=== PATIENT | male | born 2000 | race Caucasian/White ===

== ENCOUNTER 2025-01-06 19:48 | Inpatient (IN) | payer OTHER, SELFPAY ==
--- NOTE | ~2025-01-06 | CT_ITS ---
EXAMINATION: CT abdomen pelvis w con DATE: 01/07/2025 01:52 INDICATION: Fever. Abdominal pain. TECHNIQUE: Computed tomography (CT) of the abdomen and pelvis was performed with 100 mm Omnipaque 350 intravenous contrast. Automated exposure control and iterative reconstruction technique were employed. The dose-length product was 223.53 mGy-cm. COMPARISON: None. FINDINGS: The visualized portions of the lung bases are clear without pneumonia or pleural effusion. The heart size is normal. No pericardial effusion. The liver, gallbladder, spleen, pancreas, adrenal glands, and kidneys are normal. The appendix is fluid-filled and dilated to 13 mm with surrounding fat stranding, consistent with appendicitis. There are no pathologically enlarged lymph nodes. There is no free intraperitoneal fluid. There is mild chronic anterior wedging of multiple lower thoracic vertebral bodies. IMPRESSION: 1. Acute appendicitis. Reviewed, dictated and finalized at location E. IMPRESSION: 1. Acute appendicitis.
[2025-01-06 19:59] VITALS: BP 124/52; PULSE 101; RESP 18; TEMP 38.2; O2SAT 100
[2025-01-07] VITALS (29 sets, daily range): BP systolic 94–143; BP diastolic 56–100; PULSE 60–115; RESP 6–30; TEMP 35.6–37; O2SAT 91–100; BMI 22.1
--- NOTE | 2025-01-07 00:51 | ED_ITS ---
HPI - Nausea/Vomiting/Diarrhea General Chief complaint: Nausea/Vomiting/Diarrhea Stated complaint: n/v Time Seen by Provider: 01/07/25 00:34 History of Present Illness HPI Narrative: 24-year-old otherwise healthy male presenting to the emergency depart with periumbilical pain for the last day and a half. Started suddenly and gradually worsen. He does have a fever and tachycardia. States he has had something similar to this several months ago and was found to have norovirus but no around of his having any similar symptoms. No traumatic injuries. No testicular pain or urinary complaints. States he is nauseous but felt better after Zofran at urgent care where he came from. Was otherwise in his normal state of health. Related Data Home Medications ?Medication ?Instructions ?Recorded ?Confirmed ?Last Taken ?Type No Home Medications 01/07/25 01/07/25 U nknown History Allergies Allergy/AdvReac Type Severity Reaction Status Date / Time No Known Allergies Allergy Verified 01/07/25 07:20 Review of Systems 2 Review of Systems: As reviewed [facility] Family History Family History (Updated 01/07/25 @ 07:24 by Darinel Villarreal RN) Grandparent Dementia Social History Social History Smoking status: Former smoker Tobacco type: e-cigarettes/vaping Smoking end date: 12/31/24 Alcohol intake: current Drinks per week: 5 Substance use: current Substance use type: marijuana Lack of Transportation: No Lack of Food: Never True Current Housing: I Have Housing Concerned About Future Housing: No Difficulty Paying Gas/Electric Bills: No Difficulty Paying for Meds: No Currently Unemployed: No Education: High School Diploma/GED Difficulty w/ Childcare or Family Care: No Spiritual care concerns: No Exam 2 Narrative: GENERAL: [Well-appearing, well-nourished, and in no acute distress.] HEAD: [Normocephalic, atraumatic.] EYES: [PERRLA and EOMI.] ENT: Nares clear, no rhinorrhea or epistaxis. Mucous membranes moist. NECK: Supple. CHEST: [Clear to auscultation. No respiratory distress.] HEART: [Regular rate and rhythm]. No murmur heard. [Normal peripheral pulses.] ABDOMEN: [Soft, nondistended], tender to palpation the right lower quadrant and periumbilical region. Positive McBurney's point tenderness., no signs of peritonitis. No rigidity or guarding. EXTREMITIES: Normal range of motion. [No edema.] SKIN: Warm, dry, no rash. NEURO: [No focal deficits]. Alert and oriented [x3.] PSYCH: [Normal mood and affect.] Course Vital Signs Vital signs: Vital Signs Temperature 38.2 C H 01/06/25 19:59 Pulse Rate 101 H 01/06/25 19:59 Respiratory Rate 18 01/06/25 19:59 Blood Pressure 124/52 L 01/06/25 19:59 Pulse Oximetry 100 01/06/25 19:59 Oxygen Delivery Room Air 01/06/25 19:59 Temperature 36.6 C 01/07/25 05:24 Pulse Rate 60 01/07/25 06:01 Respiratory Rate 15 01/07/25 06:01 Blood Pressure 102/56 L 01/07/25 06:01 Pulse Oximetry 96 01/07/25 06:01 Oxygen Delivery Room Air 01/06/25 19:59 MDM - Nausea/Vomiting/Diarrhea MDM Narrative Medical decision making narrative: 24-year-old otherwise healthy male presenting to the emergency depart with periumbilical pain for the last day and a half. Started suddenly and gradually worsen. He does have a fever and tachycardia. States he has had something similar to this several months ago and was found to have norovirus but no around of his having any similar symptoms. No traumatic injuries. No testicular pain or urinary complaints. States he is nauseous but felt better after Zofran at urgent care where he came from. Was otherwise in his normal state of health. Patient is tachycardic in the 120s to 130s, febrile at 38.2? C, normal blood pressure. Normal oxygenation. respiratory 18. Tender and McBurney's point raising suspicion for appendicitis versus other intra-abdominal infectious process. History of norovirus and could be some lower but no profound watery diarrhea. Gastroenteritis possible. Less likely pyelonephritis urinary tract in nature. Blood work obtained, urinalysis ordered. Given Toradol fluids and Zofran and re-evaluated. CT scan with contrast obtained. CT scan shows acute appendicitis. Patient started on Zosyn. Does have an elevated white count. Hemodynamically stable and fever broke. Spoke to Dr. Peoples from General surgery who accepted the patient for admission at this time. Relayed this information to the family members. Medical Records Attestation: I reviewed the patient's medical records. Lab Data Attestation: I reviewed the patient's lab results. 01/07/25 01:08 01/07/25 01:08 Labs: Lab Results 01/07/25 Range/Units 01:08 WBC 13.8 H (4.5-10.0) K/mm3 RBC 4.97 (4.6-6.20) M/mm3 Hgb 15.7 (14.0-18.0) g/dL Hct 43.7 (42.0-52.0) % MCV 87.9 (80-100) fl MCH 31.6 (26-34) pg MCHC 35.9 (32-36) g/dl RDW 11.9 (11.5-14.5) % Plt Count 143 L (150-375) k/mm3 MPV 9.3 (7.4-10.4) fl Immature Gran % (Auto) 0.7 H (0-0.5) % Neut % (Auto) 91.1 H (45.5-73.1) % Lymph % (Auto) 3.1 L (18.3-44.2) % [place] % (Auto) 4.8 (2.6-8.5) % Eos % (Auto) 0.1 (0-4.4) % Baso % (Auto) 0.2 (0.2-1.2) % Lymph # (Auto) 0.43 L (0.9-3.2) K/mm3 [place] # (Auto) 0.7 H (0.1-0.6) K/mm3 Eos # (Auto) 0.0 (0-0.3) K/mm3 Baso # (Auto) 0.0 (0.0-0.1) K/mm3 Abs Immat Gran (auto) 0.09 H (0.00-0.031) K/mm3 Absolute Neuts (auto) 12.6 H (1.3-6.7) K/mm3 Absolute Nucleated RBC 0.000 (0.0-0.012) K/mm3 Total Counted 100 Neutrophils % (Manual) 81 H (46-73) % Band Neutrophils % 8 H (0-6) % Lymphocytes % (Manual) 4.0 L (18-44) % Monocytes % (Manual) 7 (3-9) % Nucleated RBC % 0.0 (0.0-0.2) % Abs Neuts (Manual) 12.28 H (1.3-6.7) K/mm3 Abs Lymphs (Manual) 0.55 L (1.1-4.5) K/mm3 Abs Monocytes (Manual) 0.96 H (0.1-0.90) K/mm3 Platelet Estimate Adequate (Adequate) Schistocytes None seen Sodium 128 L (137-145) mmol/L Potassium 3.7 (3.4-5.0) mmol/L Chloride 97 L (98-107) mmol/L Carbon Dioxide 19 L (22-30) mmol/L Anion Gap 12 (4-12) mmol/L BUN 15 (9-20) mg/dL Creatinine 1.18 (0.7-1.3) mg/dL Estim Creat Clear Calc 92 ml/min Estimated GFR > 60 (59 - ) Glucose 157 H (65-110) mg/dL Calcium 8.6 (8.4-10.2) mg/dL Total Bilirubin 6.4 H (0.2-1.3) mg/dL AST 32 (17-59) U/L ALT 28 (6-50) U/L Alkaline Phosphatase 84 (38-126) U/L Total Creatine Kinase 242 H (55-170) U/L Total Protein 7.9 (6.3-8.2) g/dL Albumin 4.5 (3.5-5.1) g/dL Lipase 27 (23-300) U/L Urine Color Dark yellow (Yellow) Urine Appearance Clear (Clear) Urine pH 5.5 (5.0-9.0) Ur Specific [place] 1.028 (1.001-1.035) Urine Protein 2+ H (Negative) mg/dL Urine Glucose (UA) Negative (Negative) mg/dL Urine Ketones 4+ H (Negative) mg/dL Ur Blood (Man) 2+ H (Negative) Urine Nitrate Positive H (Negative) Urine Bilirubin 2+ H (Negative) Urine Urobilinogen 1.0 (<2.0) mg/dL Add Ur Microanalysis Reviewed Leukocyte Esterase Rfl Trace H (Negative) ELIAS/UL Urine RBC 11-20 H (0-2) /hpf Urine WBC 0-5 (0-3) /hpf Ur Squamous Epith Cells None seen (Few) /hpf Urine Bacteria None seen /hpf Urine Casts 0-2 Imaging Data Attestation: I personally reviewed and interpreted this imaging study as follows: My impression: Acute appendicitis Critical Care Time Critical Care Time Critical Care Time: Yes Total Critical Care Time: 30 Discharge Plan Discharge Clinical Impression: Acute appendicitis Patient Disposition: Still a Patient Condition: Stable
[2025-01-07 01:21] LABS: Hematocrit 43.7 % (42.0-52.0); Hemoglobin 15.7 g/dL (14.0-18.0); Immature Granulocyte Percent A 0.7 % (0-0.5); Lymphocytes Absolute Auto 0.43 K/mm3 (0.9-3.2); Mean Corpuscular HGB Conc 35.9 g/dl (32-36); Mean Corpuscular Hemoglobin 31.6 pg (26-34); Mean Corpuscular Volume 87.9 fl (80-100); Nucleated Red Blood Cells Absolute Auto 0.000 K/mm3 (0.0-0.012); Nucleated Red Blood Cells Perc 0.0 % (0.0-0.2); Platelet Count Result 143 k/mm3 (150-375); Red Blood Count 4.97 M/mm3 (4.6-6.20); White Blood Count 13.8 K/mm3 (4.5-10.0)
[2025-01-07] MEDS: ACETAMINOPHEN 500 MG TABLET 1000 MG PO ×2 (01:25→13:40)
[2025-01-07] MEDS: ONDANSETRON INJ 4 MG/2 ML VIAL IV PUSH ×3 (01:26→16:15)
[2025-01-07] MEDS: LACTATED RINGERS 1,000 ML 999 ML IV CONT (01:26)
[2025-01-07] MEDS: KETOROLAC 30 MG/ML VIAL (*BKC) IV PUSH (01:26)
[2025-01-07 01:32] LABS: Alanine Aminotransferase 28 U/L (6-50); Albumin Level 4.5 g/dL (3.5-5.1); Alkaline Phosphatase 84 U/L (38-126); Anion Gap 12 mmol/L (4-12); Aspartate Amino Transferase 32 U/L (17-59); Bilirubin,Total 6.4 mg/dL (0.2-1.3); Blood Urea Nitrogen 15 mg/dL (9-20); Calcium 8.6 mg/dL (8.4-10.2); Carbon Dioxide 19 mmol/L (22-30); Chloride 97 mmol/L (98-107); Estimated CRCL calculation 92 ml/min; Estimated Glomerular Filt Rate > 60; Glucose 157 mg/dL (65-110); Lipase 27 U/L (23-300); Potassium 3.7 mmol/L (3.4-5.0); Sodium 128 mmol/L (137-145); Total Protein 7.9 g/dL (6.3-8.2)
[2025-01-07 01:34] LABS: Add Urine Microscopic? YES; Appearance Urine Clear (Clear); Glucose Urine UA Negative (Negative); Leukocyte Esterase Ur Trace LEU/UL (Negative); Need Manual Microscopic Reviewed; Nitrate Urine Positive (Negative); Non Pathogenic Casts 0-2; Specific Grav Ur 1.028 (1.001-1.035)
[2025-01-07 01:55] LABS: Creatine Kinase 242 U/L (55-170)
[2025-01-07 02:11] LABS: Band Neutrophils Percent 8 % (0-6); Lymphocytes Absolute Manual 0.55 K/mm3 (1.1-4.5); Lymphocytes Percent Manual 4.0 % (18-44); Monocytes Absolute Manual 0.96 K/mm3 (0.1-0.90); Monocytes Percent Manual 7 % (3-9); Neutrophils Absolute Manual 12.28 K/mm3 (1.3-6.7); Neutrophils Percent Manual 81 % (46-73); Total Cells Counted 100
[2025-01-07 02:12] LABS: Schistocytes None Seen
[2025-01-07] MEDS: SODIUM CHLORIDE 0.9% IV 1,000 ML 999 ML IV CONT (05:22)
[2025-01-07] MEDS: PIPERACILLIN/TAZOBACTAM SOD 4.5 GM in SODIUM CHLORIDE 0.9% IV 100 ML 200 ML IVPB (05:22)
[2025-01-07] MEDS: MORPHINE SULFATE (*CRX) 4 MG/ML INJ IV PUSH (05:31)
[2025-01-07] MEDS: SODIUM CHLORIDE 0.9% IV 1,000 ML 125 ML IV CONT (06:38)
--- NOTE | 2025-01-07 10:39 | P.HP_ITS ---
H&P: HPI History of Present Illness Date/Time: 01/07/25 10:39 Chief Complaint: abdominal pain Narrative: Patient is a 24 year old male who presented to the ED around midnight with complaints of abdominal pain that started two days ago (01/05) around noon. He had associated nausea and vomiting. Last ate two days ago and last BM was two days ago. He denies any previous abdominal surgeries. Upon admission to the hospital labs revealed an elevated WBC count of 13.8. CT of the abdomen and pelvis demonstrated a fluid filled dilated appendix at 13 mm with surrounding fat stranding, consistent with appendicitis. Patient made NPO and given Zosyn. Of note, patient did have an elevated bilirubin of 6.4 on labs. [facility] Family History Family History (Updated 01/07/25 @ 07:24 by Darinel Villarreal RN) Grandparent Dementia Social History Social History Smoking status: Former smoker Tobacco type: e-cigarettes/vaping Smoking end date: 12/31/24 Alcohol intake: current Drinks per week: 5 Substance use: current Substance use type: marijuana Lack of Transportation: No Lack of Food: Never True Current Housing: I Have Housing Concerned About Future Housing: No Difficulty Paying Gas/Electric Bills: No Difficulty Paying for Meds: No Currently Unemployed: No Education: High School Diploma/GED Difficulty w/ Childcare or Family Care: No Spiritual care concerns: No Meds Home Medications and Allergies Home Medications ?Medication ?Instructions ?Recorded ?Confirmed ?Type No Home Medications 01/07/25 01/07/25 H istory Allergies Allergy/AdvReac Type Severity Reaction Status Date / Time No Known Allergies Allergy Verified 01/07/25 07:20 Vital Signs Vital Signs - 24 hr 01/06/25 19:59 01/07/25 00:11 01/07/25 00:15 Temperature 100.7 F H Pulse Rate 101 H 98 97 Respiratory Rate 18 21 H 15 Blood Pressure 124/52 L Pulse Oximetry 100 94 Oxygen Delivery Room Air 01/07/25 00:30 01/07/25 00:45 01/07/25 01:15 Temperature Pulse Rate 106 H 115 H 77 Respiratory Rate 30 H 19 Blood Pressure 111/62 Pulse Oximetry 95 Oxygen Delivery 01/07/25 01:19 01/07/25 01:20 01/07/25 01:20 Temperature Pulse Rate 105 H Respiratory Rate Blood Pressure 111/62 118/98 H 118/98 H Pulse Oximetry Oxygen Delivery 01/07/25 01:22 01/07/25 01:23 01/07/25 01:25 Temperature Pulse Rate 96 115 H Respiratory Rate 23 H Blood Pressure 143/100 H 143/100 H Pulse Oximetry 98 Oxygen Delivery 01/07/25 01:30 01/07/25 01:31 01/07/25 01:32 Temperature Pulse Rate 80 91 86 Respiratory Rate 15 19 21 H Blood Pressure 99/62 L Pulse Oximetry 95 98 98 Oxygen Delivery 01/07/25 05:13 01/07/25 05:24 01/07/25 05:40 Temperature 97.9 F Pulse Rate 64 84 69 Respiratory Rate 19 14 19 Blood Pressure 125/81 Pulse Oximetry 96 99 100 Oxygen Delivery 01/07/25 05:45 01/07/25 05:46 01/07/25 06:00 Temperature Pulse Rate 74 68 61 Respiratory Rate 6 L 17 17 Blood Pressure 113/57 L Pulse Oximetry 96 91 96 Oxygen Delivery 01/07/25 06:01 01/07/25 08:00 Temperature Pulse Rate 60 Respiratory Rate 15 Blood Pressure 102/56 L Pulse Oximetry 96 Oxygen Delivery Room Air Exam Const: General: comfortable and no acute distress Eyes: General: appearance normal, both eyes and all related structures Neck: Neck: supple and no JVD Resp: Effort & Inspection: normal respiratory effort Cardio: Rate: regular rate GI: Inspection: non-distended GI Palp: Yes Soft to palpation, Yes Tenderness to palpation present (GI) (RLQ), No Guarding due to palpation present (GI) and No Hernia present Auscultation: Hyperactive bowel sounds present Extrem: General: normal to inspection Psych: Mental Status: mental status grossly normal H&P: Results Labs Labs: Short CBC 01/07/25 Range/Units 01:08 WBC 13.8 H (4.5-10.0) K/mm3 Hgb 15.7 (14.0-18.0) g/dL Hct 43.7 (42.0-52.0) % Plt Count 143 L (150-375) k/mm3 BMP 01/07/25 01:08 Sodium 128 L Potassium 3.7 Chloride 97 L Carbon Dioxide 19 L BUN 15 Creatinine 1.18 Glucose 157 H Calcium 8.6 Cardiac Enzymes 01/07/25 Range/Units 01:08 Total Creatine Kinase 242 H (55-170) U/L Liver Function 01/07/25 Range/Units 01:08 Total Bilirubin 6.4 H (0.2-1.3) mg/dL AST 32 (17-59) U/L ALT 28 (6-50) U/L Alkaline Phosphatase 84 (38-126) U/L Albumin 4.5 (3.5-5.1) g/dL Urine 01/07/25 Range/Units 01:08 Urine Color Dark yellow (Yellow) Urine Appearance Clear (Clear) Urine pH 5.5 (5.0-9.0) Ur Specific [place] 1.028 (1.001-1.035) Urine Protein 2+ H (Negative) mg/dL Urine Glucose (UA) Negative (Negative) mg/dL Assessment and Plan Assessment and plan (1) Acute appendicitis: Code(s): K35.80 - Unspecified acute appendicitis Status: Acute Assessment and Plan: Patient presented to the hospital late last night with RLQ pain and associated nausea and vomiting that began two days ago on Tuesday, 01/05. Upon arrival to the ED, [place] [address] demonstrated acute appendicitis. Patient is on the schedule for laparoscopic appendectomy this afternoon. Risks, benefits, and alternatives were discussed with the patient and his girlfriend at bedside. He is agreeable to proceed with surgery. Keep patient NPO. Continue IV fluids and antibiotics. (2) Elevated bilirubin: Code(s): R17 - Unspecified jaundice Status: Acute Assessment and Plan: Labs revealed a bilirubin of 6.4. Patient made aware and instructed to follow up with his PCP. No signs of jaundiced skin or sclera. Patient denies ever having being told he has elevated bilirubin. He states that he does drink a little bit of alcohol. Denies history of Gilbert's disease. CT of abdomen negative for any gallbladder abnormality. Plan Discussed patient's case and plan of care with Dr. Peoples.
[2025-01-07] MEDS: PIPERACILLIN/TAZOBACTAM SOD 3.375 GM in SODIUM CHLORIDE 0.9% IV 50 ML 100 ML IVPB (12:00)
[2025-01-07] MEDS: HYDROmorphone HCL INJ (*CRX) 1 MG/ML SYR 0.5 MG IV PUSH (12:28)
[2025-01-07 12:59] LABS: Alanine Aminotransferase 32 U/L (6-50); Albumin Level 3.5 g/dL (3.5-5.1); Alkaline Phosphatase 71 U/L (38-126); Aspartate Amino Transferase 44 U/L (17-59); Bilirubin,Total 5.2 mg/dL (0.2-1.3); Total Protein 6.5 g/dL (6.3-8.2)
--- NOTE | 2025-01-07 13:20 | PC.NURSE ---
To OR via wheelchair.
--- NOTE | 2025-01-07 14:02 | WPDANESEPPF ---
Anes - Initial Pre Proc Eval Procedure: Operation Date: 01/07/25 15:00 Proposed Procedures p Laparoscopic Appendectomy, Possible Open - Mikayla Peoples MD Date/Time: 01/07/25 14:02 Surgeon: Mikayla Peoples MD Pre Op Diagnosis: Acute appendicitis Patient Data Age: 24 Gender: M Height: 1.85 m Weight: 76.2 kg Last Vital Signs Temp 98.6 F 01/07/25 13:30 Pulse 61 01/07/25 13:30 Resp 15 01/07/25 06:01 BP 101/57 L 01/07/25 13:30 Pulse Ox 95 01/07/25 13:30 O2 Del Method Room Air 01/07/25 08:00 Allergies Allergy/AdvReac Type Severity Reaction Status Date / Time No Known Allergies Allergy Verified 01/07/25 07:20 Home Medications ?Medication ?Instructions ?Recorded ?Confirmed ?Type No Home Medications 01/07/25 01/07/25 History Laboratory Tests 01/07/25 01/07/25 01:08 12:28 WBC 13.8 H K/mm3 (4.5-10.0) RBC 4.97 M/mm3 (4.6-6.20) Hgb 15.7 g/dL (14.0-18.0) Hct 43.7 % (42.0-52.0) MCV 87.9 fl (80-100) MCH 31.6 pg (26-34) MCHC 35.9 g/dl (32-36) RDW 11.9 % (11.5-14.5) Plt Count 143 L k/mm3 (150-375) MPV 9.3 fl (7.4-10.4) Immature Gran % (Auto) 0.7 H % (0-0.5) Neut % (Auto) 91.1 H % (45.5-73.1) Lymph % (Auto) 3.1 L % (18.3-44.2) [place] % (Auto) 4.8 % (2.6-8.5) Eos % (Auto) 0.1 % (0-4.4) Baso % (Auto) 0.2 % (0.2-1.2) Lymph # (Auto) 0.43 L K/mm3 (0.9-3.2) [place] # (Auto) 0.7 H K/mm3 (0.1-0.6) Eos # (Auto) 0.0 K/mm3 (0-0.3) Baso # (Auto) 0.0 K/mm3 (0.0-0.1) Abs Immat Gran (auto) 0.09 H K/mm3 (0.00-0.031) Absolute Neuts (auto) 12.6 H K/mm3 (1.3-6.7) Absolute Nucleated RBC 0.000 K/mm3 (0.0-0.012) Total Counted 100 Neutrophils % (Manual) 81 H % (46-73) Band Neutrophils % 8 H % (0-6) Lymphocytes % (Manual) 4.0 L % (18-44) Monocytes % (Manual) 7 % (3-9) Nucleated RBC % 0.0 % (0.0-0.2) Abs Neuts (Manual) 12.28 H K/mm3 (1.3-6.7) Abs Lymphs (Manual) 0.55 L K/mm3 (1.1-4.5) Abs Monocytes (Manual) 0.96 H K/mm3 (0.1-0.90) Platelet Estimate Adequate (Adequate) Schistocytes None seen Sodium 128 L mmol/L (137-145) Potassium 3.7 mmol/L (3.4-5.0) Chloride 97 L mmol/L (98-107) Carbon Dioxide 19 L mmol/L (22-30) Anion Gap 12 mmol/L (4-12) BUN 15 mg/dL (9-20) Creatinine 1.18 mg/dL (0.7-1.3) Estim Creat Clear Calc 92 ml/min Estimated GFR > 60 (59 - ) Glucose 157 H mg/dL (65-110) Calcium 8.6 mg/dL (8.4-10.2) Total Bilirubin 6.4 H mg/dL 5.2 H mg/dL (0.2-1.3) (0.2-1.3) Direct Bilirubin 0.0 mg/dL (0-0.3) AST 32 U/L 44 U/L (17-59) (17-59) ALT 28 U/L 32 U/L (6-50) (6-50) Alkaline Phosphatase 84 U/L 71 U/L (38-126) (38-126) Total Creatine Kinase 242 H U/L (55-170) Total Protein 7.9 g/dL 6.5 g/dL (6.3-8.2) (6.3-8.2) Albumin 4.5 g/dL 3.5 g/dL (3.5-5.1) (3.5-5.1) Lipase 27 U/L (23-300) Urine Color Dark yellow (Yellow) Urine Appearance Clear (Clear) Urine pH 5.5 (5.0-9.0) Ur Specific [place] 1.028 (1.001-1.035) Urine Protein 2+ H mg/dL (Negative) Urine Glucose (UA) Negative mg/dL (Negative) Urine Ketones 4+ H mg/dL (Negative) Ur Blood (Man) 2+ H (Negative) Urine Nitrate Positive H (Negative) Urine Bilirubin 2+ H (Negative) Urine Urobilinogen 1.0 mg/dL (<2.0) Add Ur Microanalysis Reviewed Leukocyte Esterase Rfl Trace H ELIAS/UL (Negative) Urine RBC 11-20 H /hpf (0-2) Urine WBC 0-5 /hpf (0-3) Ur Squamous Epith Cells None seen /hpf (Few) Urine Bacteria None seen /hpf Urine Casts 0-2 Patient hx anesthesia problems: none Family hx anesthesia problems: none Results Review: All pre-operative results and documents have been reviewed as part of the pre-operative evaluation. [facility] Family History Family History Grandparent Dementia Social History Social History Smoking status: Former smoker Tobacco type: e-cigarettes/vaping Smoking end date: 12/31/24 Alcohol intake: current Drinks per week: 5 Substance use: current Substance use type: marijuana Lack of Transportation: No Lack of Food: Never True Current Housing: I Have Housing Concerned About Future Housing: No Difficulty Paying Gas/Electric Bills: No Difficulty Paying for Meds: No Currently Unemployed: No Education: High School Diploma/GED Difficulty w/ Childcare or Family Care: No Spiritual care concerns: No Anes - Eval Final PreProcedure Day of Procedure 01/07/25 14:02 Patient weight: normal Lungs: normal air movement Airway: Mallampati scale class II Neurological: alert and oriented Last oral intake: >/= 8 hours ASA classification: II Emergent: no Anesthetic plan: proceed Anesthesia type and monitoring: general ETT and standard monitoring Results Review: All pre-operative results and documents have been reviewed as part of the pre-operative evaluation. Pt vapes currently, although quit several weeks ago, overall active w gym/riding motorcycles, no cp or sob. Informed Consent: The patient's anesthetic plan and its attendant risks and benefits were discussed with the patient/family/POA. Questions were solicited and answers provided to the satisfaction of the patient/family/POA.
--- NOTE | 2025-01-07 14:21 | WPDHPUPDATE1 ---
History and Physical Update Update Date/Time: 01/07/25 14:21 History and Physical has been reviewed, including an updated exam of the patient. There are NO changes in the patient's condition. Risks, benefits, and alternatives have been discussed and questions answered. Patient agrees to proceed with procedure.
--- NOTE | 2025-01-07 15:14 | S_PTH ---
PATIENT: Nayan Glover LOC: [id number] U#:[id number] AGE/SX: 24/M ROOM: 300 RE01/07/[address]: Mikayla Peoples MD : 2000 BED: 01 DIS: 01/07/2025 SPEC #: [id number] RECD: 01/08/25 07:47 STATUS: ANA LILIA REQ #: [id number] SENDY: 01/07/25 15:[address]: Mikayla Peoples DEPT: [facility] Surgical RECD BY: Missy Finley ENTERED: 01/08/25 07:47 SP TYPE: Surgical OTHR DR: ORCHARD PRUNER PHYSICIAN Gio Figueroa MD Tissues: A - Appendix Procedures: Hematoxylin and Eosin Stain Gross and Microscopic Level 3
--- NOTE | 2025-01-07 15:44 | W.PM.PROC2 ---
Procedure Note - Detailed Date of Procedure 01/07/25 Pre-op Diagnosis Acute appendicitis Post-op Diagnosis Same Procedure Performed Laparoscopic appendectomy Surgeon Mikayla Peoples MD Anesthesia General and Local Indications 24-year-old male presenting to the emergency department with acute appendicitis. Findings Acute uncomplicated appendicitis Description of Procedure The patient was taken to the operating room and placed in the supine position. After adequate induction of general anesthesia, the patient was prepped and draped in the normal sterile fashion. A time-out was then done to verify the patient's identity, as well as the procedure being performed. Began by making a 5 mm incision in the infraumbilical region. Through this a Veress needle was placed in the peritoneal cavity and CO2 gas was insufflated. After adequate pneumoperitoneum was achieved, the Veress needle was removed and a 5 mm port trocar was placed through this incision. I then placed the laparoscopic through this trocar and under direct visualization placed 2 further 5 mm suprapubic port, as well as an additional 12 mm port in the left lower abdomen. At this point, the cecum was identified and retracted both medially and cephalad. This allowed us to expose the appendix. The appendix was noted to be inflamed and injected, however no obvious perforation was noted. I was then able to grasp the tip of the appendix and retract this laterally and anteriorly. This allowed us to expose the base of the appendix with the cecum. At this point I created a window between the appendix and the mesoappendix using a Harriet bisector. Once accomplished, I transected the mesoappendix with a white vascular staple load. The stapler was then re-loaded with a blue thick tissue staple load and this was used to transect the base of the appendix with the cecum. I then placed the appendiceal specimen in an endo-pouch and removed this through the 12 mm port site. The specimen will now be sent to pathology for further review. I then copiously irrigated the right lower quadrant. No other pathology was noted and both staple lines were noted to be intact and hemostatic. I then proceeded to close the fascia of the 12 mm left lower quadrant port site with a Nikolai cone an 0 Vicryl suture. The abdomen was then desufflated and all ports removed. All port sites were then closed with 4-0 Monocryl subcuticular suture. Dermabond was placed on all wounds. The patient tolerated the procedure well and was extubated postoperatively. He will be transferred to the recovery room in stable condition. Estimated Blood Loss 5 Drains No Packing No Pathology Yes Complications No immediate complications Condition Stable Disposition PACU [facility] Billing Surgery - Charge Forward: Surgery Billing
[2025-01-07] MEDS: LACTATED RINGERS 1,000 ML 30 ML IV CONT (15:50)
[2025-01-07] MEDS: fentaNYL CITRATE INJ (*CRX) 100 MCG/2 ML VIAL 25 MCG IV PUSH ×2 (16:12→16:25)
[2025-01-07] MEDS: HYDROcodone/acetaminophen (*CRX) 5-325 MG TABLET 1 TAB PO (17:12)
--- NOTE | 2025-01-10 07:36 | P.DS_ITS ---
DS: Admitting Diagnosis Discharge Date 01/07/25 Admitting Diagnosis acute appendicitis DS: Discharge Diagnosis Discharge Diagnosis (1) Acute appendicitis: Code(s): K35.80 - Unspecified acute appendicitis Status: Acute Assessment and Plan: status post laparoscopic appendectomy, routine postoperative care, home with p.o. 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 Workup in the emergency d epartment, including imaging, is significant for acute appendicitis. Given these findings, the patient was admitted to the surgical service. Upon evaluation, it was noted that the patient would need urgent appendectomy. The patient was made NPO and started on IV antibiotics. He was taken to the operating room on 01/07 and laparoscopic appendectomy was performed. Please see full operative report for details of that procedure. Postoperatively, the patient did well and was transferred back to the floor. A few hours after surgery, he was up and ambulating without issue, and tolerating a regular diet. His pain was well controlled with p.o. analgesia. He will be discharged home at this time with instructions for local wound care and p.o. analgesia. He will follow up with me in 2 weeks. Status at Discharge Functional status at discharge: independent ambulation Overall status at discharge: patient is progressing back to baseline Time Spent with Patient Time attestation: Total time spent providing and/or coordinating discharge services: Time spent: Less than 30 minutes Exam Const: General: cooperative, comfortable and no acute distress Resp: Auscultation: clear to auscultation bilaterally Cardio: Rate: regular rate Rhythm: regular rhythm GI: Inspection: normal to inspection, non-distended and incision GI Palp: Yes abdominal tenderness and Yes Soft to palpation DS: Data Data Completed and Pending Completed studies during hospitalization: Pending at discharge 01/07/25 15:14 Surgical [PTH] Routine Discharge Plan Discharge Attending physician on discharge: Mikayla Peoples Consulting providers: Gio Figueroa; Dana Jain; Denzel Poole; Jose A Hall V. Discharging Clinician: Mikayla Peoples Anticipated Discharge Date/Time: 01/07/25 18:00 Patient Disposition: Home Activity: as tolerated Diet: as tolerated Wound Care Instructions: incision open to air Discharge Instructions: DISCHARGE INSTRUCTION SHEET FOR HERNIA, GALLBLADDER AND APPENDIX SURGERIES DR. PEOPLES PATIENT TO TAKE HOME 1. May shower in 24 hours, no soaking in bath x 2weeks. 2. Call office for: * Wound increasingly painful or bleeding * Vomiting * Fever of greater than 101 degrees 3. If no bowel movement for three days, take 1 oz. (30 ml) Milk of Magnesia or MiraLax 17g 1 to 2 times daily. 4. No heavy lifting > 10-15 pounds x 6 weeks for hernia repairs and 2 weeks for laparoscopic cholecystectomy or appendectomy. 5. No driving for 3 days or while taking narcotic pain medications. 6. Ice to surgical site for 48 hours (30 min on, then 30 min off). 7. Up walking 10-30 minutes three times per day. 8. Resume previous home medications. 9. Follow-up 10-14 days in office for wound check or as previously scheduled. ([phone]) 10. Oral pain medications prescription to be sent to pharmacy. Take Tylenol 500mg every 6 hours and Ibuprofen 600mg every 6 hours for the first 2 days, then as needed. 11. NUTRITION: Start out by drinking fluids and increase your diet as tolerated. If you experience nausea, try dry toast, crackers, and 7-UP. If nausea or vomiting persists, contact your surgeon?s office. 12. Gallbladders-Low Fat Diet for 2 weeks (send care note of low fat diet) 13. Inguinal Hernias-wear scrotal support for 48 hours 14. Abdominal Hernias-if sent home with abdominal binder, wear for the first 2 weeks (may remove to shower or at night to sleep). Revised 03/2020 Patient Instructions: Antibiotic Form Patient Language: Macedonian Stand Alone Forms: General Discharge Information Follow-up/Referrals: Mikayla Peoples MD [Physician, General Surgery] - 2 Weeks Discharge Medications: New hydrocodone-acetaminophen 5-325 mg tablet 1 tablet PO Q6H PRN (Reason: pain) Qty: 20 0RF docusate sodium [Colace] 100 mg capsule 100 mg PO BID Qty: 20 0RF ondansetron 4 mg tablet,disintegrating 4 mg PO Q6H Qty: 10 0RF Date of admission: 01/07/25 03:41 Primary Care Provider: PHYSICIAN,NEON SIGN MECHANIC Admitting Provider: Mikayla Peoples Attending physician on admission: Mikayla Peoples Condition: Stable
== END 2025-01-07 18:05 | disposition home or self-care (01) | DRG 398 ==
LOC: ANHED 01-07 03:59 → ANH3MEDSUR 01-07 04:41
PROVIDERS: Physician Assistant; Admitting Provider Surgery; Emergency Provider Student in an Organized Health Care Education/Training Program; Visit Provider Surgery
PROC: 0DTJ4ZZ Resection of Appendix, Percutaneous Endoscopic Approach (ICD-10-PCS; CPT 44970; principal; 2025-01-07 15:00)
DX: K35.80 Unspecified acute appendicitis (principal); R17 Unspecified jaundice; F10.90 Alcohol use, unspecified, uncomplicated; F12.90 Cannabis use, unspecified, uncomplicated; Z87.891 Personal history of nicotine dependence; Z86.19 Personal history of other infectious and parasitic diseases
CPT/HCPCS: 36415; 74177; 80053; 80076; 81001; 82550; 83690; 85025; 87086; 88304; 96361; 96374; 96375; 99285; A9270; J0330; J1100; J1171; J1885; J2003; J2250; J2270; J2405; J2543; J2704; J3010; J7030; J7120; Q9967